=== PATIENT | male | born 1995 | race Caucasian/White ===

== ENCOUNTER → 2023-09-15 | Outpatient (CLI) | payer SELFPAY, OTHER ==
--- NOTE | 2023-09-15 12:40 | VDLE_ITS ---
Reason For Study: RLE Swelling RIGHT LEFT GSV is normal. FV is compressible, spontaneous, phasic, CFV is compressible, spontaneous, phasic, competent and demonstrates normal competent and demonstrates normal augmentation. augmentation. FV is compressible, spontaneous, phasic, competent and demonstrates normal augmentation. POP V is compressible, spontaneous, phasic, competent and demonstrates normal augmentation. T/P Trunk is compressible. PTV is compressible. RT PerV is compressible. An area of non vascularized mixed echoes within the Rt calf muscle is noted. Area measures approximately 9.06cm x 3.28cm. Procedure This is a venous duplex using B-mode, color flow and spectral Doppler. Exam performed in department. The exam was diagnostic. A preliminary report was called and/or faxed to Magalys Phillips office. VL/Venous Duplex US, Unilateral Interpretation Summary There is no evidence of right lower extremity deep vein thrombosis. Right great saphenous vein appears patent and compressible segmentally. Complex 9.06 x 3.25 cm nonvascular structure within the right calf musculature. This does not appear to be a simple cyst. Clinical nancy elation would be appropriate regarding possible traumatic injury. Normal flow patterns left femoral vein Ordering Physician: MAGALYS PHILLIPS Referring Physician: Deandre Melara Performed By: Satish Marcus RVT
== END | disposition home or self-care (01) ==
PROVIDERS: PCP Family Medicine
DX: M79.89 Other specified soft tissue disorders (principal)
CPT/HCPCS: 93971